=== PATIENT | female | born 1995 | race Caucasian/White ===

== ENCOUNTER 2017-09-14 23:52 | Emergency (ER) | payer OTHER ==
[~2017-09-14] VITALS: Ht 157.5 cm; Wt 60.8 kg
[2017-09-15 00:18] VITALS: Ht 157.5 cm; Wt 60.8 kg
[2017-09-15 01:02] LABS: microscopic required? NO
[2017-09-15 01:14] LABS: UA SPECIFIC GRAVITY >=1.030 (1.005-1.035); urine erythrocyte NEGATIVE (NEGATIVE)
[2017-09-15 01:20] LABS: PLATELET COUNT 373 x10^3mcL (130-400); RED CELL DISTRIBUTION WIDTH 14.2 % (11.5-14.5)
[2017-09-15 01:26] LABS: BASOPHIL % 4.1 % (0-2)
[2017-09-15 02:20] VITALS: BP 138/83
== END 2017-09-15 02:20 | disposition home or self-care (01) ==
LOC: ED 23:52
PROVIDERS: Emergency Medicine
DX: O26.891 Other specified pregnancy related conditions, first trimester (principal); Z3A.00 Weeks of gestation of pregnancy not specified
CPT/HCPCS: 36415

== ENCOUNTER 2017-11-17 19:34 | Emergency (ER) | payer OTHER ==
[~2017-11-17] VITALS: Ht 157.5 cm; Wt 60.8 kg
[2017-11-17 20:30] VITALS: Ht 157.5 cm; Wt 60.8 kg
[2017-11-17 22:20] VITALS: BP 130/87
== END 2017-11-17 22:20 | disposition home or self-care (01) ==
LOC: ED 19:34
DX: O9A.211 Injury, poisoning and certain other consequences of external causes complicating pregnancy, first trimester (principal); S06.0X0A Concussion without loss of consciousness, initial encounter; Z3A.13 13 weeks gestation of pregnancy; X58.XXXA Exposure to other specified factors, initial encounter; Y93.89 Activity, other specified; Y92.89 Other specified places as the place of occurrence of the external cause; Y99.8 Other external cause status